=== PATIENT | female | born 1945 | race Caucasian/White ===

== ENCOUNTER 2021-09-01 23:41 | Emergency (ER) | payer MEDICARE, OTHER ==
[~2021-09-01 23:41] MED LIST: BUSPAR5 MG PO; CARAFATE1 GM PO; CEFDINIR300 M1 PO; CITALOPRAM 40MG40 MG PO; CLONAZEPAM 0.50.5 MG PO; FLOMAX0.4 MG PO; K-DUR20 MEQ PO; NORCO 5-325 TA1 EACH PO; SIMVASTATIN20 MG PO; TENORMIN50 MG PO; TOPROL XL 25MG25 MG PO; ZOFRAN4 MG PO
[2021-09-02 00:45] LABS: BILIRUBIN 1+ mg/dL (NEGATIVE); BLOOD 3+ Ery/uL (NEGATIVE); CLARITY CLEAR (CLEAR); COLOR YELLOW (YELLOW); GLUCOSE (U) NORMAL (NORMAL); LEUKOCYTES 1+ Leu/uL (NEGATIVE); NITRITE NEGATIVE (NEGATIVE); PROTEIN TRACE (LOW) mg/dL (NEGATIVE); SPECIFIC GRAVITY >=1.030 (1.001-1.030)
[2021-09-02 00:47] LABS: EOSINOPHIL 2.7 % (0-7); HCT 38.9 % (37.0-47.0); LYMPHOCYTE 34.2 % (15-48); MCH 29.8 pg (25.0-31.0); MCHC 30.8 g/dL (32.0-36.0); MCV 96.5 fL (78.0-100.0); MPV 10.3 fL (6.0-9.5); NEUTROPHIL 53.8 % (41-80); NRBC 0; PLT 249 K/uL (150-400); RBC 4.03 M/uL (4.20-5.40); RDW 12.9 % (11.5-14.0); WBC 7.2 K/uL (4.0-10.5)
[2021-09-02 00:50] LABS: BACTERIA 1+; URINARY RBC 20-50
[2021-09-02 01:09] LABS: ALBUMIN 3.7 g/dL (3.4-5.0); BILIRUBIN - TOTAL 0.4 mg/dL (0.2-1.0); BUN/CREAT RATIO (CALC) 12.9 RATIO; CREATININE 1.01 mg/dL (0.51-0.95); POTASSIUM 4.2 mmol/L (3.5-5.1); TOTAL PROTEIN 6.7 g/dL (6.4-8.2)
[2021-09-02] MEDS ORDERED: BACTRIM DS TAB1 EACH PO (01:44)
[2021-09-02] MEDS ORDERED: ONDANSETRON ODT4 MG PO (01:44)
[2021-09-02] MEDS ORDERED: FLOMAX 0.4 MG0.4 MG PO (01:44)
== END 2021-09-02 01:56 | disposition home or self-care (01) ==
LOC: FER 23:41
PROVIDERS: Emergency Medicine
DX: N13.2 Hydronephrosis with renal and ureteral calculous obstruction (principal); I10 Essential (primary) hypertension; F03.90 Unspecified dementia, unspecified severity, without behavioral disturbance, psychotic disturbance, mood disturbance, and anxiety; Z88.1 Allergy status to other antibiotic agents; Z88.5 Allergy status to narcotic agent; Z79.899 Other long term (current) drug therapy
CPT/HCPCS: 36415; 80053; 81001; 85025; J1885; J7030

== ENCOUNTER 2022-03-15 12:23 | Emergency (ER) | payer MEDICARE, OTHER ==
[~2022-03-15 12:23] MED LIST changes: +BACTRIM DS TAB1 EACH PO; +FLOMAX 0.4 MG0.4 MG PO; +ONDANSETRON ODT4 MG PO
[2022-03-15] MEDS ORDERED: VIBRAMYCIN100 MG PO (14:37)
== END 2022-03-15 15:07 | disposition home or self-care (01) ==
LOC: FER 12:23
DX: S63.501A Unspecified sprain of right wrist, initial encounter (principal); S00.83XA Contusion of other part of head, initial encounter; S93.402A Sprain of unspecified ligament of left ankle, initial encounter; R91.8 Other nonspecific abnormal finding of lung field; I10 Essential (primary) hypertension; F03.90 Unspecified dementia, unspecified severity, without behavioral disturbance, psychotic disturbance, mood disturbance, and anxiety; Z28.311 Partially vaccinated for COVID-19; W19.XXXA Unspecified fall, initial encounter; Y92.009 Unspecified place in unspecified non-institutional (private) residence as the place of occurrence of the external cause
CPT/HCPCS: 71045; 73110; 73610